=== PATIENT | female | born 1945 | race Caucasian/White ===

== ENCOUNTER → 2018-03-24 | Outpatient (CLI) | payer MEDICARE, OTHER ==
[~2018-03-24] MED LIST: ALEN70TA48 PO; COUMADIN PO; FURO40 PO; LANS15CA14 PO; LEVO100T13 PO; METO100T14 PO; PRAV20TA4 PO; SPIR25TA6 PO; WARF2 PO
== END | disposition home or self-care (01) ==
LOC: RADPV 10:44
PROVIDERS: ATTEND Internal Medicine Cardiovascular Disease
DX: I35.1 Nonrheumatic aortic (valve) insufficiency (principal); Z95.2 Presence of prosthetic heart valve
CPT/HCPCS: 93306